=== PATIENT | female | born 1970 | race Caucasian/White ===

== ENCOUNTER 2018-09-08 21:32 | Emergency (ER) | payer BC ==
[~2018-09-08] VITALS: Ht 170.2 cm; Wt 10.9 kg
[~2018-09-08 21:32] MED LIST: MAXALT MLT ODT10 M2 PO; NEXIUM40 MG PO; NORCO 5-325 TA1 EACH PO
[2018-09-08 23:19] VITALS: BP 120/67
== END 2018-09-08 23:19 | disposition home or self-care (01) ==
LOC: ER 21:32
DX: M25.562 Pain in left knee (principal); Z86.718 Personal history of other venous thrombosis and embolism; G43.909 Migraine, unspecified, not intractable, without status migrainosus; K21.9 Gastro-esophageal reflux disease without esophagitis; F17.210 Nicotine dependence, cigarettes, uncomplicated; Z88.2 Allergy status to sulfonamides; Z88.8 Allergy status to other drugs, medicaments and biological substances